=== PATIENT | female | born 1990 | race Two or more races ===

== ENCOUNTER 2024-06-22 05:52 | Day surgery (SDC) | payer OTHER ==
[~2024-06-22 05:52] MED LIST: COZAAR50 MG PO; DOXYCYCLINE HY100 MG PO; METOPROLOL TART50 MG PO; MORGIDOX100 MG PO; NAPR500T14 PO; TYLENOL-CODEINE1 TAB PO
[2024-06-22] MEDS ORDERED: CEFOXITIN SODIUM 2,000 MG VIAL IV ONE (08:45)
[2024-06-22] MEDS ORDERED: POVIDONE-IODINE 118 ML BOTT TOP ONE (11:40)
[2024-06-22] MEDS ORDERED: SUGAMMADEX SODIUM 200 MG/2 ML VIAL IV ONE (13:11)
[2024-06-22] MEDS ORDERED: MORPHINE SULFATE 4 MG/ML VIAL IV PRN (13:45)
[2024-06-22] MEDS ORDERED: PROMETHAZINE HCL 50 MG/ML AMPUL IM ONE (13:45)
[2024-06-22] MEDS ORDERED: MORPHINE SULFATE 4 MG/ML VIAL IV ONE ×2 (13:50→14:20)
[2024-06-22] MEDS ORDERED: Tylenol #3 PO (13:54)
[2024-06-22] MEDS ORDERED: NAPR500T14 PO (13:54)
== END 2024-06-22 14:55 | disposition home or self-care (01) ==
LOC: CIR.AMB 05:52
PROVIDERS: ATTEND Obstetrics & Gynecology
DX: N83.292 Other ovarian cyst, left side (principal); N80.102 Endometriosis of left ovary, unspecified depth; N73.6 Female pelvic peritoneal adhesions (postinfective); I10 Essential (primary) hypertension; R10.2 Pelvic and perineal pain

== ENCOUNTER 2025-01-04 10:46 | Inpatient (IN) | payer OTHER ==
[~2025-01-04] VITALS: Ht 170.2 cm; Wt 128.4 kg
[~2025-01-04 10:46] MED LIST changes: +Tylenol #3 PO
[2025-01-04 11:40] VITALS: BP 117/70
[2025-01-04 11:44] VITALS: BP 141/84
[2025-01-04 11:49] VITALS: BP 155/90
[2025-01-11] MEDS ORDERED: CEFOXITIN SODIUM 2,000 MG VIAL IV ONE (06:49)
[2025-01-11] MEDS ORDERED: LIDOCAINE HCL 1%/EPINEPHRINE 20ML VIAL IJ ONE (07:04)
[2025-01-11] MEDS ORDERED: BUPIVACAINE HCL/MPF 0.5% 30ML VIAL ONE (07:04)
[2025-01-11] MEDS ORDERED: POVIDONE-IODINE 118 ML BOTT TOP ONE (07:04)
[2025-01-11] MEDS ORDERED: CHLORHEXIDINE GLUCONATE 120 ML BOTTLE TOP ONE (07:05)
[2025-01-11] MEDS ORDERED: METOPROLOL SUCC50 MG (07:38)
[2025-01-11] MEDS ORDERED: LOSARTAN POTASS50 MG (07:38)
[2025-01-11] MEDS ORDERED: ONDANSETRON HCL 2 MG/ML VIAL IV SCH (10:02)
[2025-01-11] MEDS ORDERED: SUGAMMADEX SODIUM 200 MG/2 ML VIAL IV ONE (10:04)
[2025-01-11] MEDS ORDERED: RINGERS SOLUTION,LACTATED 1,000 ML IV SCH (10:15)
[2025-01-11] MEDS ORDERED: MORPHINE SULFATE 4 MG/ML CARTRIDGE IV PRN (10:15)
[2025-01-11] MEDS ORDERED: MORPHINE SULFATE 4 MG/ML VIAL IV ONE ×2 (10:40→11:10)
[2025-01-11 14:32] VITALS: BP 117/70
[2025-01-11] MEDS ORDERED: ENALAPRILAT DIHYDRATE 1.25 MG/ML VIAL IV PRN (15:30)
[2025-01-11] MEDS ORDERED: ACETAMINOPHEN 500 MG GEL..CAP PO PRN (15:30)
[2025-01-11 15:34] LABS: HEMATOCRIT 31.1 % (36.0-45.00); HEMOGLOBIN 9.9 g/dL (12.0-15.00); MEAN CELL VOLUME 76.2 fL (80.00-100.00); MEAN CORPUSCULAR HEMOGLOBIN 24.3 pg (27.00-32.0); MEAN CORPUSCULAR HGB CONC 31.9 g/dl (32.0-36.0); PLATELET COUNT 372 K/uL (150-450); RED BLOOD COUNT 4.08 M/uL (4.00-6.00); RED CELL DISTRIBUTION WIDTH 15.8 % (11.5-14.5)
[2025-01-11 16:39] VITALS: BP 133/87
[2025-01-11] MEDS ORDERED: FAMOTIDINE/PF 20 MG in 0.9 % SODIUM CHLORIDE 8 ML IV PUSH SCH (21:00)
[2025-01-11 23:58] VITALS: BP 103/67
[2025-01-12 05:00] VITALS: BP 102/63
[2025-01-12 08:43] VITALS: BP 120/80
[2025-01-12] MEDS ORDERED: LOSARTAN POTASSIUM 50 MG TABLET PO SCH (09:00)
[2025-01-12] MEDS ORDERED: METOPROLOL SUCCINATE 50 MG TAB.SR.24H PO SCH (09:00)
[2025-01-12] MEDS ORDERED: NAPR500T14 PO (09:01)
[2025-01-12] MEDS ORDERED: Tylenol #3 PO (09:01)
== END 2025-01-12 09:37 | disposition home or self-care (01) | DRG 743 ==
LOC: O/R 01-11 05:05 → OB/GYN 01-11 05:05 → SURH 01-11 11:15 → OB/GYN 01-12 09:37
PROVIDERS: ADMIT Obstetrics & Gynecology; ATTEND Obstetrics & Gynecology
PROC: 0UT6FZZ Resection of Left Fallopian Tube, Via Natural or Artificial Opening With Percutaneous Endoscopic Assistance (ICD-10-PCS; 2025-01-11)
PROC: 0JQC0ZZ Repair Pelvic Region Subcutaneous Tissue and Fascia, Open Approach (ICD-10-PCS; 2025-01-11)
PROC: 0USG4ZZ Reposition Vagina, Percutaneous Endoscopic Approach (ICD-10-PCS; 2025-01-11)
PROC: 0TJB8ZZ Inspection of Bladder, Via Natural or Artificial Opening Endoscopic (ICD-10-PCS; 2025-01-11)
PROC: 0UT9FZZ Resection of Uterus, Via Natural or Artificial Opening With Percutaneous Endoscopic Assistance (ICD-10-PCS; principal; 2025-01-11 14:30)
DX: N80.03 Adenomyosis of the uterus (principal); N72 Inflammatory disease of cervix uteri; N92.0 Excessive and frequent menstruation with regular cycle; N81.11 Cystocele, midline; N84.0 Polyp of corpus uteri